=== PATIENT | female | born 1995 | race Caucasian/White ===

== ENCOUNTER 2021-11-19 10:05 | Outpatient (RCR) | payer OTHER, SELFPAY ==
[2021-11-19] MEDS: RHO(D) IMMUNE GLOBULIN 300 MCG/2 ML SYRINGE IM (17:30)
== END 2022-02-17 23:59 | disposition home or self-care (01) ==
LOC: ANHLAB 10:05
PROVIDERS: PCP Family Medicine Sports Medicine; Visit Provider Student in an Organized Health Care Education/Training Program
DX: Z29.13 Encounter for prophylactic Rho(D) immune globulin (principal); O36.0190 Maternal care for anti-D [Rh] antibodies, unspecified trimester, not applicable or unspecified; Z3A.00 Weeks of gestation of pregnancy not specified
CPT/HCPCS: 36415; 85461; 90384; 96372; J2790

== ENCOUNTER 2022-02-05 15:15 | Outpatient (RCR) | payer OTHER, SELFPAY ==
[2021-12-30 11:43] VITALS: BP 134/85
--- NOTE | ~2022-02-05 | US_ITS ---
EXAMINATION: US OB BPP wo non-stress DATE: 02/05/2022 16:33 CDT INDICATION: Decreased movement TECHNIQUE: Real-time transabdominal obstetric ultrasound. FINDINGS: No prior studies for comparison. There is a single living fetus in vertex presentation. The placenta is fundal without placenta previ a. cardiac activity and movement is noted with a heart rate of 136 beats per minute. Biophysical profile: breathin of 2 movement: 0 of 2 tone: 0 of 2 Amniotic flud pocket: 2 of 2 Total score: 4 of 8 IMPRESSION: 1. Single living intrauterine in vertex presentation. 2: Total biophysical profile score of 4/8. Reviewed, dictated and finalized at location B.
== END 2022-02-27 13:25 | disposition home or self-care (01) ==
LOC: ANHOBOP 15:15
PROVIDERS: PCP Family Medicine Sports Medicine; Visit Provider Obstetrics & Gynecology
DX: O36.8130 Decreased fetal movements, third trimester, not applicable or unspecified (principal); Z3A.34 34 weeks gestation of pregnancy
CPT/HCPCS: 59025; 76819

== ENCOUNTER 2022-02-05 15:15 | Inpatient (IN) | payer OTHER, SELFPAY ==
[2022-02-05] VITALS (50 sets, daily range): BP systolic 95–154; BP diastolic 51–110; PULSE 83–288; RESP 16; TEMP 36.6–36.8; O2SAT 96–100; BMI 36.3
--- NOTE | 2022-02-05 15:27 | PC.NURSE ---
Late decel noted. Pt turned to left side in recliner.
--- NOTE | 2022-02-05 15:30 | PC.NURSE ---
Dr. Rafa Kessler returned page and informed of pt's arrival with c/o only feeling baby move twice since this morning, variability is minimal to absent and a late decel was noted. Order received for BPP.
--- NOTE | 2022-02-05 15:43 | PC.NURSE ---
U/S here at bedside. monitor removed.
--- NOTE | 2022-02-05 16:20 | PC.NURSE ---
Entered room twice during BPP to visualize cardiac activity on the U/S. BPP 02/26 ( 2 for breathing and 2 for fluid). monitor reapplied and Dr. Rafa power.
--- NOTE | 2022-02-05 16:23 | PC.NURSE ---
Dr. Rafa Kessler returned page and informed BPP 0 for movement and tone. FHT's still with minimal variability. Order received to prepare pt for section.
--- NOTE | 2022-02-05 16:40 | PC.NURSE ---
Dr Fritz at bedside to see patient.
--- NOTE | 2022-02-05 16:41 | PM.IMHP ---
H&P: HPI History of Present Illness Date/Time: 02/05/22 16:41 26-year-old 1 para 0 was last menstrual period was 05/04/2021, EDC is 02/08/2022, confirmed by 10 week ultrasound presents at 39 weeks gestation with decreased movement. She has a flat tracing on admission. Biophysical profile was only 4/8. Her cervix is 1cm and bus she will undergo immediate section. Risks and benefits reviewed. She is positive for group B strep she states her Carmen has been uncomplicated prior Chief Complaint: decreased movement Review of Systems Review of Systems: All systems reviewed & are unremarkable except as noted in HPI and below PMFSH Family History Family History Grandparent Lung cancer Grandparent Breast cancer in female Social History Social History Substance use: never Spiritual care concerns: No Meds Home Medications and Allergies Allergies Allergy/AdvReac Type Severity Reaction Status Date / Time cisapride Allergy Severe Palpitation Verified 01/18/22 14:26 s erythromycin base Allergy Unknown Unknown Verified 01/18/22 14:26 Exam Const: General: no acute distress Eyes: General: appearance normal, both eyes and all related structures Neck: Neck: supple and no JVD Thyroid: thyroid normal Resp: Effort & Inspection: normal respiratory effort Auscultation: clear to auscultation bilaterally Cardio: Rate: regular rate Rhythm: regular rhythm GI: Inspection: non-distended GI Palp: Yes Soft to palpation, No Tenderness to palpation present (GI) and No Guarding due to palpation present (GI) Auscultation: normal bowel sounds : External Female Exam: normal external appearance Speculum Exam - Vagina: normal appearance of the vagina Speculum Exam - Cervix: normal appearance of the cervix Bimanual exam- vagina & uterus: enlarged and soft Skin: General skin exam: no rashes or lesions noted Extrem: General: normal to inspection and no edema Psych: Mental Status: mental status grossly normal Affect: normal affect Assessment and Plan Additional Plan impression: 39 week with nonreassuring testing and decreased movement Plan: Immediate section. Risks and benefits reviewed
--- NOTE | 2022-02-05 16:48 | WPDHPUPDATE1 ---
History and Physical Update Update Date/Time: 02/05/22 16:48 History and Physical has been reviewed, including an updated exam of the patient. There are NO changes in the patient's condition. Risks, benefits, and alternatives have been discussed and questions answered. Patient agrees to proceed with procedure.
--- NOTE | 2022-02-05 16:50 | LDADM ---
This patient, Emma Robles, was admitted to Labor/Delivery/Recovery 118 on 02/05/22 at 15:15. Plans for labor, pain management and were discussed with patient. Patient/family oriented to hospital policies and general routines including ID bracelet, bed and alarms, visiting hours, pain management, procedures, bathroom and other care routines, personal items, smoking policy, room service/diet and guest tray routines, infant security routines, and visiting hours. Patient/Family are encouraged to report perceived risks to care and to ask questions if they do not understand what they are told or what they should do. See OBIX for further documentation.
[2022-02-05 16:52] LABS: Basophils Percent Auto 0.3 % (0.2-1.2); Eosinophils Absolute Auto 0.1 K/mm3 (0-0.3); Eosinophils Percent Auto 0.7 % (0-4.4); Hematocrit 38.6 % (37.0-47.0); Hemoglobin 12.8 g/dL (12.0-15.0); Immature Granulocyte Absolute 0.05 K/mm3 (0.00-0.031); Immature Granulocyte Percent A 0.7 % (0-0.5); Lymphocytes Absolute Auto 1.52 K/mm3 (0.9-3.2); Lymphocytes Percent Auto 22.2 % (18.3-44.2); Mean Corpuscular HGB Conc 33.2 g/dl (32-36); Mean Corpuscular Hemoglobin 29.4 pg (26-34); Mean Corpuscular Volume 88.7 fl (80-100); Mean Platelet Volume 10.6 fl (7.4-10.4); Monocytes Absolute Auto 0.5 K/mm3 (0.1-0.6); Monocytes Percent Auto 7.7 % (2.6-8.5); Neutrophils Absolute Auto 4.7 K/mm3 (1.3-6.7); Neutrophils Percent Auto 68.4 % (45.5-73.1); Platelet Count Result 173 k/mm3 (150-375); Red Blood Count 4.35 M/mm3 (4.2-5.4); Red Cell Distribution Width 13.8 % (11.5-14.5); White Blood Count 6.9 K/mm3 (4.5-10.0)
[2022-02-05] MEDS: LACTATED RINGERS 1,000 ML 125 ML IV CONT (16:59)
[2022-02-05 17:47] LABS: HIV 1/2 Ab P24 Ag Result Negative (Negative)
--- NOTE | 2022-02-05 17:55 | W.PM.PROC2 ---
Procedure Note - Detailed Date of Procedure 02/05/22 Pre-op Diagnosis DFM Post-op Diagnosis Same Procedure Performed Primary low-transverse section Surgeon Manolo Stuart MD Anesthesia Spinal Indications / 26-year-old who was admitted at 39 weeks with decreased movement. testing showed nonreassuring side that she was offered immediate section Findings female infant 5lb 11oz with Apgars of 4 and 8 at 1 and 5minutes respectively Description of Procedure the patient is prepped draped in normal sterile fashion placed in the supine position. Under excellent spinal anesthetic the abdomen was entered in Pfannenstiel fashion progressive layers to the fascia. Fascia was incised in upward outward fashion bilaterally. Underlying muscles sharply dissected parietal peritoneum 0 by Eduarda clamps. This was entered by sharp dissection superiorly and inferiorly dome of the bladder. Bladder blade was placed the bladder flap formed. Bladder blade returned a low-transverse incision made with a head delivered in the GINO position. Anterior posterior shoulder delivered spontaneously cord clamped tube was cut and passed off the table given Apgars of for 1 8 [id number] cord blood was drawn the placenta delivered intact manually. Uterus delivered on the abdomen which under S tox. After assuring no membranes or debris remained in the uterus, the uterus was closed with continuous running 0 Vicryl from lateral edge to lateral edge followed by a 2nd running imbricating layer from lateral edge lateral prepped hemostasis was assured. Uterus ovaries and tubes all appeared within normal limits. Uterus returned to the abdomen and the hysterotomy incision inspected 1 last time and noted to be hemostatic. Laps removed and accounted for the fascia was then closed with continuous running 0 Vicryl from lateral edge to midline bilaterally. Irrigation subcutaneous layer the skin was closed 4-0 Monocryl and glue. Blood loss was 450cc. All sponge, needle, instrument counts were correct. There were no immediate complications noted Estimated Blood Loss 450 Drains No Packing No Pathology Yes Complications No immediate complications Condition Stable Disposition PACU
--- NOTE | 2022-02-05 18:39 | WPDANESEPP ---
Anes - Eval Pre Procedure Procedure: Operation Date: 02/05/22 17:00 Proposed Procedures p Section - Manolo Stuart MD Date/Time: 02/05/22 18:39 Pre Op Diagnosis: DFM Patient Data Age: 26 Gender: F Height: 1.75 m Weight: 111.5 kg Last Vital Signs Temp 36.6 C 02/05/22 17:59 Pulse 97 02/05/22 17:59 Allergies Allergy/AdvReac Type Severity Reaction Status Date / Time cisapride Allergy Severe Palpitation Verified 01/18/22 14:26 s erythromycin base Allergy Unknown Unknown Verified 01/18/22 14:26 Home Medications Medication Instructions Recorded Confirmed Type [id number] fum-folic ac-om3 1 pkg PO DAILY 02/05/22 02/05/22 History [Daily ] Laboratory Tests 02/05/22 02/05/22 02/05/22 16:43 16:43 16:43 WBC 6.9 K/mm3 K/mm3 (4.5-10.0) RBC 4.35 M/mm3 M/mm3 (4.2-5.4) Hgb 12.8 g/dL g/dL (12.0-15.0) Hct 38.6 % % (37.0-47.0) MCV 88.7 fl fl (80-100) MCH 29.4 pg pg (26-34) MCHC 33.2 g/dl g/dl (32-36) RDW 13.8 % % (11.5-14.5) Plt Count 173 k/mm3 k/mm3 (150-375) MPV 10.6 fl H fl (7.4-10.4) Immature Gran % (Auto) 0.7 % H % (0-0.5) Neut % (Auto) 68.4 % % (45.5-73.1) Lymph % (Auto) 22.2 % % (18.3-44.2) [place] % (Auto) 7.7 % % (2.6-8.5) Eos % (Auto) 0.7 % % (0-4.4) Baso % (Auto) 0.3 % % (0.2-1.2) Lymph # (Auto) 1.52 K/mm3 K/mm3 (0.9-3.2) [place] # (Auto) 0.5 K/mm3 K/mm3 (0.1-0.6) Eos # (Auto) 0.1 K/mm3 K/mm3 (0-0.3) Baso # (Auto) 0.0 K/mm3 K/mm3 (0.0-0.1) Abs Immat Gran (auto) 0.05 K/mm3 H K/mm3 (0.00-0.031) Absolute Neuts (auto) 4.7 K/mm3 K/mm3 (1.3-6.7) Absolute Nucleated RBC 0.0 K/mm3 K/mm3 (0.0-0.012) Nucleated RBC % 0.0 % % (0.0-0.2) RPR Pending HIV 1&2 Ab/P24 Ag 4thGn Blood Type A Negative Antibody Screen Positive Antibody Identification Pending Antigen Identification Pending LATOYA, IgG Interpret Pending LATOYA, Poly Interpret Pending LATOYA, Complement Interp Pending 02/05/22 16:43 WBC RBC Hgb Hct MCV MCH MCHC RDW Plt Count MPV Immature Gran % (Auto) Neut % (Auto) Lymph % (Auto) [place] % (Auto) Eos % (Auto) Baso % (Auto) Lymph # (Auto) [place] # (Auto) Eos # (Auto) Baso # (Auto) Abs Immat Gran (auto) Absolute Neuts (auto) Absolute Nucleated RBC Nucleated RBC % RPR HIV 1&2 Ab/P24 Ag 4thGn Negative (Negative) Blood Type Antibody Screen Antibody Identification Antigen Identification LATOYA, IgG Interpret LATOYA, Poly Interpret LATOYA, Complement Interp Patient hx anesthesia problems: none Family hx anesthesia problems: none Results Review: All pre-operative results and documents have been reviewed as part of the pre-operative evaluation. [facility] Past Medical History Medical History (Updated 02/05/22 @ 18:40 by Leonarda Mcrae CRNA) IUP (intrauterine ), incidental Obesity (BMI 30-39.9) Family History Family History Grandparent Lung cancer Grandparent Breast cancer in female Social History Social History Smoking status: Never smoker Second hand tobacco smoke exposure: No Substance use: never Spiritual care concerns: No Exam Day of Procedure 02/05/22 18:39
[2022-02-05] MEDS: HYDROmorphone HCL INJ (*CRX) 1 MG/ML SYR 0.5 MG IV PUSH ×2 (19:38→20:28)
[2022-02-05] MEDS: OXYTOCIN 30 UNITS/NS 500 ML 30 UNITS/500 ML BAG 125 UNITS IV CONT (19:39)
[2022-02-05] MEDS: ONDANSETRON INJ 4 MG/2 ML VIAL IV PUSH (20:32)
--- NOTE | 2022-02-05 23:19 | OBPPTRN ---
Patient transferred to post room # 290 via (stretcher ). Support person present. Oriented to unit, room, information board, rooming in, admission packet and security measures. Patient verbalizes understanding.
[2022-02-06] VITALS: BP 135/84; PULSE 108; RESP 16; TEMP 36.6; O2SAT 100
[2022-02-06] MEDS: DEXTROSE 5%/0.45% SOD CHL 1,000 ML 125 ML IV CONT (00:20)
[2022-02-06] MEDS: IBUPROFEN 600 MG TABLET PO ×4 (01:48→21:28)
[2022-02-06] MEDS: HYDROcodone/acetaminophen (*CRX) 5-325 MG TABLET 1 TAB PO ×5 (01:48→16:34)
[2022-02-06 04:30] VITALS: BP 122/79; PULSE 106; RESP 18; TEMP 36.7; O2SAT 97
[2022-02-06] MEDS: ONDANSETRON INJ 4 MG/2 ML VIAL IV PUSH (05:03)
[2022-02-06 05:07] LABS: Basophils Percent Auto 0.2 % (0.2-1.2); Eosinophils Percent Auto 0.3 % (0-4.4); Hematocrit 32.1 % (37.0-47.0); Hemoglobin 10.6 g/dL (12.0-15.0); Immature Granulocyte Absolute 0.06 K/mm3 (0.00-0.031); Immature Granulocyte Percent A 0.6 % (0-0.5); Lymphocytes Absolute Auto 1.45 K/mm3 (0.9-3.2); Lymphocytes Percent Auto 15.6 % (18.3-44.2); Mean Corpuscular Hemoglobin 29.6 pg (26-34); Mean Corpuscular Volume 89.7 fl (80-100); Mean Platelet Volume 10.6 fl (7.4-10.4); Monocytes Absolute Auto 0.5 K/mm3 (0.1-0.6); Monocytes Percent Auto 5.1 % (2.6-8.5); Neutrophils Absolute Auto 7.2 K/mm3 (1.3-6.7); Neutrophils Percent Auto 78.2 % (45.5-73.1); Platelet Count Result 145 k/mm3 (150-375); Red Blood Count 3.58 M/mm3 (4.2-5.4); White Blood Count 9.3 K/mm3 (4.5-10.0)
[2022-02-06 08:00] VITALS: BP 105/77; PULSE 98; RESP 18; TEMP 36.8; O2SAT 99
--- NOTE | 2022-02-06 08:05 | PM.OBPNVD ---
OB - PN: Subj Subjective Date/time seen: 02/06/22 08:05 Patient comments: no complaints and pain well controlled baby status: doing well OB - PN: Obj Data Labs CBC & Chem 7: 02/06/22 04:07 Labs: Laboratory Results - last 24 hr 02/05/22 02/05/22 02/05/22 16:43 16:43 16:43 WBC 6.9 RBC 4.35 Hgb 12.8 Hct 38.6 MCV 88.7 MCH 29.4 MCHC 33.2 RDW 13.8 Plt Count 173 MPV 10.6 H Immature Gran % (Auto) 0.7 H Neut % (Auto) 68.4 Lymph % (Auto) 22.2 [place] % (Auto) 7.7 Eos % (Auto) 0.7 Baso % (Auto) 0.3 Lymph # (Auto) 1.52 [place] # (Auto) 0.5 Eos # (Auto) 0.1 Baso # (Auto) 0.0 Abs Immat Gran (auto) 0.05 H Absolute Neuts (auto) 4.7 Absolute Nucleated RBC 0.0 Nucleated RBC % 0.0 HIV 1&2 Ab/P24 Ag 4thGn Negative Blood Type A Negative Antibody Screen Positive Antibody Identification Passive Due to RH Imm Glob Antigen Identification Not Reportable LATOYA, IgG Interpret Not Performed LATOYA, Poly Interpret Negative LATOYA, Complement Interp Not Performed 02/06/22 04:07 WBC 9.3 RBC 3.58 L Hgb 10.6 L Hct 32.1 L MCV 89.7 MCH 29.6 MCHC 33.0 RDW 14.0 Plt Count 145 L MPV 10.6 H Immature Gran % (Auto) 0.6 H Neut % (Auto) 78.2 H Lymph % (Auto) 15.6 L [place] % (Auto) 5.1 Eos % (Auto) 0.3 Baso % (Auto) 0.2 Lymph # (Auto) 1.45 [place] # (Auto) 0.5 Eos # (Auto) 0.0 Baso # (Auto) 0.0 Abs Immat Gran (auto) 0.06 H Absolute Neuts (auto) 7.2 H Absolute Nucleated RBC 0.0 Nucleated RBC % 0.0 HIV 1&2 Ab/P24 Ag 4thGn Blood Type Antibody Screen Antibody Identification Antigen Identification LATOYA, IgG Interpret LATOYA, Poly Interpret LATOYA, Complement Interp OB - PN A/P Plan day: 1 Plan: routine care Time Spent With Patient Time: Total time spent is greater than 50% in coordination of care (as documented) at patient's floor/unit and/or counseling patient: Time with patient: less than 15 minutes Review of Systems Review of Systems: All systems reviewed & are unremarkable except as noted in HPI and below Exam Const: General: no acute distress Eyes: General: appearance normal, both eyes and all related structures Neck: Neck: supple and no JVD Thyroid: thyroid normal Resp: Effort & Inspection: normal respiratory effort Auscultation: clear to auscultation bilaterally Cardio: Rate: regular rate Rhythm: regular rhythm GI: Inspection: normal to inspection, non-distended and incision ( clean dry and intact) GI Palp: Yes Soft to palpation, No Tenderness to palpation present (GI) and No Guarding due to palpation present (GI) Auscultation: normal bowel sounds Skin: General skin exam: no rashes or lesions noted Extrem: General: normal to inspection and no edema Psych: Mental Status: mental status grossly normal Affect: normal affect
[2022-02-06] MEDS: DOCUSATE SODIUM 100 MG CAPSULE PO ×2 (08:42→16:34)
[2022-02-06] MEDS: SIMETHICONE 80 MG TAB.CHEW PO ×3 (08:43→21:28)
[2022-02-06] MEDS: MULTIVIT/MIN/PREN/FOL AC/IRON TABLET 1 TAB PO (08:43)
[2022-02-06 12:00] VITALS: BP 102/52; PULSE 86; RESP 18; TEMP 36.8
--- NOTE | 2022-02-06 12:44 | WPDANLDPN2 ---
Anes-Prog Note L&D Date/Time: 02/06/22 12:44 Comfortable throughout: section Neuraxial method: spinal Epidural/Spinal procedure site: clean & non-tender Neuro status: Neuro function grossly intact. Cardiovascular status: normal Respiratory status: normal Airway patency: baseline Mental status: baseline Post-Op hydration status: normal Vital Signs: Last Vital Signs Temp 36.8 C 02/06/22 08:00 Pulse 98 02/06/22 08:00 Resp 18 02/06/22 08:00 BP 105/77 02/06/22 08:00 Pulse Ox 99 02/06/22 08:00 Pain score (VAS): 11/30 I/O: Intake & Output 02/05/22 02/06/22 02/06/22 23:59 07:59 15:59 Intake Total 1500 Output Total 044 025 5245 Balance -450 -600 -500 Post-procedural complaints: none Patient feedback: Patient satisfied with anesthetic care.
--- NOTE | 2022-02-06 12:45 | WPDANLDNPN2 ---
Anes-Prog Note L&D-Neuraxial Date/Time: 02/06/22 12:45 Neuraxial medications: intrathecal PF morphine Opiod-related complaints: none Patient feedback: Patient satisfied with post-operative pain management.
[2022-02-06 16:00] VITALS: BP 102/50; BP 102/52; PULSE 110; PULSE 86; RESP 18; TEMP 36.6; TEMP 36.8; O2SAT 99
[2022-02-06] MEDS: LANOLIN (LANSINOH) 7.5 GM CREAM 1 APPLIC TOPICAL (16:34)
--- NOTE | 2022-02-06 18:00 | PC.NURSE ---
Tabatha Francisco drawn per [facility] order.
--- NOTE | 2022-02-06 18:33 | PC.NURSE ---
Jackelyn Mathew from lab phoned and requesting reason for Kleinhauer Beke. Instructed that physician from [facility] phoned today requesting test to be drawn on mother to rule out any hemolytic diseases. Phone number given to Jackelyn Mathew and instructed to call [facility] NICU with any other questions.
[2022-02-06 18:47] VITALS: BP 125/75; PULSE 110; RESP 18; TEMP 36.4; O2SAT 99
[2022-02-06] MEDS: HYDROcodone/acetaminophen (*CRX) 10-325 MG TABLET 1 TAB PO (21:32)
--- NOTE | 2022-02-06 23:03 | PC.NURSE ---
02/06/2022 at 2130 Patient viewed the discharge video Mother & Baby Care, The First Two Weeks . Patient was given the opportunity and encouraged to ask questions. Patient verbalized understanding of information shared and has been given the mother/baby guide for home reference.
[2022-02-07] MEDS: HYDROcodone/acetaminophen (*CRX) 10-325 MG TABLET 1 TAB PO ×2 (05:54→09:58)
[2022-02-07] MEDS: IBUPROFEN 600 MG TABLET PO ×2 (05:54→10:03)
[2022-02-07] MEDS: SIMETHICONE 80 MG TAB.CHEW PO (05:55)
--- NOTE | 2022-02-07 07:15 | PM.OBPNVD ---
OB - PN: Subj Subjective Date/time seen: 02/07/22 07:15 Patient comments: no complaints and pain well controlled OB - PN: Obj Data Labs CBC & Chem 7: 02/06/22 04:07 Labs: Laboratory Results - last 24 hr 02/06/22 17:52 KB Hemoglobin Negative OB - PN A/P Plan day: 2 Plan: routine care, discharge home and follow up 6 weeks (2) Time Spent With Patient Time: Total time spent is greater than 50% in coordination of care (as documented) at patient's floor/unit and/or counseling patient: Time with patient: less than 15 minutes Review of Systems Review of Systems: All systems reviewed & are unremarkable except as noted in HPI and below Exam Const: General: no acute distress Eyes: General: appearance normal, both eyes and all related structures Neck: Neck: supple and no JVD Thyroid: thyroid normal Resp: Effort & Inspection: normal respiratory effort Auscultation: clear to auscultation bilaterally Cardio: Rate: regular rate Rhythm: regular rhythm GI: Inspection: non-distended GI Palp: Yes Soft to palpation, No Tenderness to palpation present (GI) and No Guarding due to palpation present (GI) Auscultation: normal bowel sounds : General: Yes bladder normal to palpation External Female Exam: normal external appearance Speculum Exam - Vagina: normal vaginal discharge and No vaginal bleeding Speculum Exam - Cervix: nontender Bimanual exam- vagina & uterus: bladder normal to palpation and No Cervical tenderness present OB/external & speculum: No vaginal bleeding Skin: General skin exam: no rashes or lesions noted Extrem: General: normal to inspection and no edema Psych: Mental Status: mental status grossly normal Affect: normal affect
--- NOTE | 2022-02-07 07:15 | PM.DS ---
DS: Admitting Diagnosis Discharge Date 02/07/2022 Admitting Diagnosis term with nonreassuring testing DS: Summary Hospital Course Hospital Course: patient was admitted at term with decreased movement. She had a relatively flat tracing and underwent biophysical profile which was only a 4/8. She underwent immediate low-transverse section. Baby received Apgars of 4 and 8. Please see the operative report for full details. Baby was transferred but the patient was doing well. She remained afebrile. She was up, voiding without difficulty, ambulating generally without complaints. Time Spent with Patient Time attestation: Total time spent providing and/or coordinating discharge services: Exam Const: General: no acute distress Eyes: General: appearance normal, both eyes and all related structures Neck: Neck: supple and no JVD Thyroid: thyroid normal Resp: Effort & Inspection: normal respiratory effort Auscultation: clear to auscultation bilaterally Cardio: Rate: regular rate Rhythm: regular rhythm GI: Inspection: non-distended GI Palp: Yes Soft to palpation, No Tenderness to palpation present (GI) and No Guarding due to palpation present (GI) Auscultation: normal bowel sounds : General: Yes bladder normal to palpation External Female Exam: normal external appearance Speculum Exam - Vagina: normal vaginal discharge and No vaginal bleeding Speculum Exam - Cervix: nontender Bimanual exam- vagina & uterus: bladder normal to palpation and No Cervical tenderness present OB/external & speculum: No vaginal bleeding Skin: General skin exam: no rashes or lesions noted Extrem: General: normal to inspection and no edema Psych: Mental Status: mental status grossly normal Affect: normal affect DS: Data Data Completed and Pending Pending studies at discharge: Pending at discharge 02/05/22 18:27 Surgical [PTH] Routine Labs on day of discharge: Labs from last 24 hours 02/06/22 17:52 KB Hemoglobin Negative Discharge Plan Discharge Attending physician on discharge: Manolo Stuart Discharging Clinician: Manolo Stuart Patient Disposition: Home, Self-Care Activity: may shower, no straining and pelvic rest Diet: heart healthy Wound Care Instructions: follow printed instructions Patient Instructions: Antibiotic Form Stand Alone Forms: General Discharge Information Follow-up/Referrals: Anatoliy Doss MD [Physician] - Discharge Medications: Continued Daily [id number] mg-mcg-mg Combo Pack 1 pkg PO DAILY RF: 0 Date of admission: 02/05/22 15:15 Primary Care Provider: Malinda,Deejay Rasmussen Admitting Provider: Anatoliy Doss Attending physician on admission: Anatoliy Doss Condition: Stable
[2022-02-07 08:00] VITALS: BP 125/75; PULSE 110; RESP 18; TEMP 36.4; O2SAT 99
[2022-02-07] MEDS: MULTIVIT/MIN/PREN/FOL AC/IRON TABLET 1 TAB PO (09:59)
[2022-02-07] MEDS: DOCUSATE SODIUM 100 MG CAPSULE PO (09:59)
--- NOTE | 2022-02-07 10:33 | PC.NURSE ---
Discharge instructions given to pt. including follow up visit date and time. Pt. verbalized understanding. No questions or concerns voiced. at side.
--- NOTE | 2022-02-07 11:00 | PC.NURSE ---
Order received by Dr. Rafa Kessler stating that pt. does not need to return for follow up visit.
[2022-02-08 17:57] LABS: Rapid Plasma Reagin Non-Reactive (NonReactive)
== END 2022-02-07 11:47 | disposition home or self-care (01) | DRG 788 ==
LOC: ANHLDR 17:16 → ANHOB2 02-07 07:16 → ANHLDR 02-09 14:06 → ANHOB2 02-09 14:06
PROVIDERS: Admitting Provider Obstetrics & Gynecology; PCP Family Medicine Sports Medicine; Visit Provider Obstetrics & Gynecology
PROC: 10D00Z1 Extraction of Products of Conception, Low, Open Approach (ICD-10-PCS; CPT 59514; principal; 2022-02-05 17:00)
DX: O36.8130 Decreased fetal movements, third trimester, not applicable or unspecified (principal); Z37.0 Single live birth; Z3A.39 39 weeks gestation of pregnancy; O99.824 Streptococcus B carrier state complicating childbirth; O36.8330 Maternal care for abnormalities of the fetal heart rate or rhythm, third trimester, not applicable or unspecified
CPT/HCPCS: 36415; 76819; 85025; 85460; 86592; 86703; 86850; 86880; 86900; 86901; 86902; 88307; A9270; G0432; J1170; J2274; J2405; J2590; J7120

== ENCOUNTER 2023-06-09 08:03 | Outpatient (CLI) | payer OTHER, SELFPAY ==
[2023-06-09 08:54] LABS: Beta HCG Quantitative 39.95 mIU/ML
== END 2023-06-09 08:04 | disposition home or self-care (01) ==
PROVIDERS: PCP Family Medicine Sports Medicine; Visit Provider Obstetrics & Gynecology
DX: O20.0 Threatened abortion (principal)
CPT/HCPCS: 36415; 84702

== ENCOUNTER 2023-06-11 07:35 | Outpatient (CLI) | payer OTHER, SELFPAY | END 2023-06-11 07:36 | disposition home or self-care (01) | PROVIDERS: PCP Family Medicine Sports Medicine; Visit Provider Obstetrics & Gynecology | DX: O20.0 Threatened abortion (principal); Z3A.00 Weeks of gestation of pregnancy not specified | CPT/HCPCS: 36415; 84702 ==

== ENCOUNTER 2023-08-18 09:32 | Outpatient (RCR) | payer OTHER, SELFPAY ==
[2023-08-19] MEDS: RHO(D) IMMUNE GLOBULIN 300 MCG/2 ML SYRINGE IM (08:42)
== END 2023-11-16 23:59 | disposition home or self-care (01) ==
LOC: ANHLAB 09:32
PROVIDERS: PCP Family Medicine Sports Medicine; Visit Provider Obstetrics & Gynecology
DX: Z29.13 Encounter for prophylactic Rho(D) immune globulin (principal); O36.0190 Maternal care for anti-D [Rh] antibodies, unspecified trimester, not applicable or unspecified; O20.0 Threatened abortion; Z3A.00 Weeks of gestation of pregnancy not specified
CPT/HCPCS: 36415; 85461; 86850; 86900; 86901; 90384; 96372; J2790

== ENCOUNTER 2024-01-03 15:35 | Outpatient (RCR) | payer OTHER, SELFPAY ==
[2024-01-04] MEDS: RHO(D) IMMUNE GLOBULIN 300 MCG/2 ML SYRINGE IM (15:44)
== END 2024-04-02 23:59 | disposition home or self-care (01) ==
LOC: ANHLAB 15:35
PROVIDERS: PCP Family Medicine Sports Medicine; Visit Provider Obstetrics & Gynecology
DX: Z29.13 Encounter for prophylactic Rho(D) immune globulin (principal); O36.0190 Maternal care for anti-D [Rh] antibodies, unspecified trimester, not applicable or unspecified; Z3A.00 Weeks of gestation of pregnancy not specified
CPT/HCPCS: 36415; 85461; 86850; 86870; 86880; 86900; 86901; 86902; 86971; 90384; 96372; J2790

== ENCOUNTER 2024-03-11 15:59 | Outpatient (RCR) | payer OTHER, SELFPAY ==
[2024-02-06 14:30] VITALS: BP 107/65; PULSE 90
[2024-02-13 08:29] VITALS: BP 119/70; PULSE 89
[2024-02-21 17:04] VITALS: BP 125/70; PULSE 99
[2024-02-27 16:22] VITALS: BP 120/71; PULSE 94
[2024-03-01 17:27] VITALS: BP 124/84; PULSE 98
[2024-03-05 16:14] VITALS: BP 128/73; PULSE 103
--- NOTE | ~2024-03-11 | US_ITS ---
US OB limited DATE: 02/21/2024 16:35 INDICATION: Amniotic fluid index TECHNIQUE: Real-time imaging and Doppler analysis COMPARISON: None FINDINGS: Live santana intrauterine gestation, fetus in longitudinal lie, vertex presentation, with heart rate of 148 bpm. Anterior placenta. Amniotic fluid index measures 13.8 cm, within lower normal range. (5th percentile ENIO: 7.9 cm; 95th p ercentile ENIO: 24.9 cm). IMPRESSION: Amniotic fluid index measures 7.9 cm Reviewed, dictated and finalized at Location A. Reviewed, dictated and finalized at location B.
[2024-03-11 16:36] VITALS: BP 131/79; PULSE 93
== END 2024-05-06 23:59 | disposition home or self-care (01) ==
LOC: ANHOBOP 15:59
PROVIDERS: PCP Family Medicine Sports Medicine; Visit Provider Obstetrics & Gynecology
DX: O36.8130 Decreased fetal movements, third trimester, not applicable or unspecified (principal); Z3A.33 33 weeks gestation of pregnancy; O36.63X0 Maternal care for excessive fetal growth, third trimester, not applicable or unspecified; Z3A.34 34 weeks gestation of pregnancy; Z3A.35 35 weeks gestation of pregnancy; Z3A.36 36 weeks gestation of pregnancy; Z3A.37 37 weeks gestation of pregnancy; Z3A.38 38 weeks gestation of pregnancy
CPT/HCPCS: 59025; 76815

== ENCOUNTER 2024-03-14 07:11 | Inpatient (IN) | payer OTHER, SELFPAY ==
[2024-03-14] VITALS (52 sets, daily range): BP systolic 111–156; BP diastolic 40–113; PULSE 54–125; RESP 17–20; TEMP 36.2–36.9; O2SAT 68–100; BMI 36.1
[2024-03-14] MEDS: ACETAMINOPHEN 500 MG TABLET 1000 MG PO (07:38)
[2024-03-14] MEDS: LACTATED RINGERS 1,000 ML 125 ML IV CONT ×3 (07:45→09:30)
--- NOTE | 2024-03-14 08:03 | LDADM ---
This patient, Emma Robles, was admitted to Labor/Delivery/Recovery 120 on 03/14/24 at 07:11. Plans for labor, pain management and were discussed with patient. Patient/family oriented to hospital policies and general routines including ID bracelet, bed and alarms, visiting hours, pain management, procedures, bathroom and other care routines, personal items, smoking policy, room service/diet and guest tray routines, infant security routines, and visiting hours. Patient/Family are encouraged to report perceived risks to care and to ask questions if they do not understand what they are told or what they should do. See OBIX for further documentation.
[2024-03-14 08:08] LABS: Basophils Absolute Auto 0.1 K/mm3 (0.0-0.1); Basophils Percent Auto 0.7 % (0.2-1.2); Eosinophils Percent Auto 0.6 % (0-4.4); Immature Granulocyte Absolute 0.09 K/mm3 (0.00-0.031); Immature Granulocyte Percent A 1.3 % (0-0.5); Lymphocytes Absolute Auto 2.03 K/mm3 (0.9-3.2); Lymphocytes Percent Auto 29.1 % (18.3-44.2); Mean Corpuscular HGB Conc 32.4 g/dl (32-36); Mean Corpuscular Hemoglobin 28.2 pg (26-34); Mean Corpuscular Volume 86.9 fl (80-100); Mean Platelet Volume 11.2 fl (7.4-10.4); Monocytes Absolute Auto 0.5 K/mm3 (0.1-0.6); Monocytes Percent Auto 6.7 % (2.6-8.5); Neutrophils Absolute Auto 4.3 K/mm3 (1.3-6.7); Neutrophils Percent Auto 61.6 % (45.5-73.1); Platelet Count Result 147 k/mm3 (150-375); Red Blood Count 4.26 M/mm3 (4.2-5.4); Red Cell Distribution Width 14.8 % (11.5-14.5)
--- NOTE | 2024-03-14 08:14 | WPDANESEPPF ---
Anes - Initial Pre Proc Eval Procedure: Operation Date: 03/14/24 08:15 Proposed Procedures p Section - Anatoliy Doss MD Operation Date: 03/21/24 12:00 Proposed Procedures p Repeat Section with Tubal Ligation - Anatoliy Doss MD Date/Time: 03/14/24 08:14 Surgeon: Anatoliy Doss MD Pre Op Diagnosis: srom Patient Data Age: 28 Gender: F Height: 1.75 m Weight: 111 kg Last Vital Signs Pulse 118 H 03/14/24 08:00 BP 134/79 03/14/24 08:00 O2 Del Method Room Air 03/14/24 08:02 Allergies Allergy/AdvReac Type Severity Reaction Status Date / Time cisapride Allergy Severe Palpitation Verified 02/21/24 15:34 s erythromycin base Allergy Unknown Unknown Verified 02/21/24 15:34 Home Medications Medication Instructions Recorded Confirmed Type vits 75-iron 28 mg-folic 1 pkg PO DAILY 02/05/22 03/11/24 History acid 800 mcg-omega3 440 mg oral pack bupropion HCl 150 mg 24 hr tablet, 150 mg PO QAM 03/11/24 03/11/24 History extended release sertraline 100 mg tablet 100 mg PO HS 03/11/24 03/11/24 History Laboratory Tests 03/14/24 07:59 WBC Pending RBC Pending Hgb Pending Hct Pending MCV Pending MCH Pending MCHC Pending RDW Pending Plt Count Pending MPV Pending Immature Gran % (Auto) Pending Neut % (Auto) Pending Lymph % (Auto) Pending [place] % (Auto) Pending Eos % (Auto) Pending Baso % (Auto) Pending Lymph # (Auto) Pending [place] # (Auto) Pending Eos # (Auto) Pending Baso # (Auto) Pending Abs Immat Gran (auto) Pending Absolute Neuts (auto) Pending Absolute Nucleated RBC Pending Nucleated RBC % Pending Patient hx anesthesia problems: none and post op nausea/vomiting (mild nausea after prev C section. ) Family hx anesthesia problems: none Results Review: All pre-operative results and documents have been reviewed as part of the pre-operative evaluation. [facility] Past Medical History Medical History IUP (intrauterine ), incidental Obesity (BMI 30-39.9) Family History Family History Grandparent Lung cancer Grandparent Breast cancer in female Social History Social History Smoking status: Never smoker Second hand tobacco smoke exposure: No Substance use: never Do You Feel Safe in your Home?: Yes Lack of Transportation: No Lack of Food: Never True Current Housing: I Have Housing Concerned About Future Housing: No Difficulty Paying Gas/Electric Bills: No Difficulty Paying for Meds: No Currently Unemployed: No Education: Master's Degree or Higher Difficulty w/ Childcare or Family Care: No Spiritual care concerns: No Anes - Eval Final PreProcedure Day of Procedure 03/14/24 08:14 Patient weight: overweight Heart: regular rate and rhythm Lungs: clear to auscultation Airway: Mallampati scale class II Neurological: alert and oriented Last oral intake: >/= 8 hours ASA classification: II Emergent: no Anesthetic plan: proceed Anesthesia type and monitoring: regional spinal Results Review: All pre-operative results and documents have been reviewed as part of the pre-operative evaluation. Informed Consent: The patient's anesthetic plan and its attendant risks and benefits were discussed with the patient/family/POA. Questions were solicited and answers provided to the satisfaction of the patient/family/POA.
--- NOTE | 2024-03-14 08:24 | PM.IMHP ---
H&P: HPI History of Present Illness Date/Time: 03/14/24 08:24 Chief Complaint: Jeff trinidad Narrative: 28 y/o at 38 4/7 weeks here after a gush of fluid at 0600, clear. Found to have SROM. She has prior , desires repeat. Also desires concurrent bilateral tubal ligation. GBS pos. Review of Systems Review of Systems: All systems reviewed & are unremarkable except as noted in HPI and below PMFSH Past Medical History Medical History (Updated 03/14/24 @ 08:28 by Anatoliy Doss MD) History of anxiety IUP (intrauterine ), incidental Obesity (BMI 30-39.9) Surgical History Surgical History (Updated 03/14/24 @ 08:28 by Anatoliy Doss MD) History of delivery Family History Family History Grandparent Lung cancer Grandparent Breast cancer in female Social History Social History Smoking status: Never smoker Second hand tobacco smoke exposure: No Substance use: never Do You Feel Safe in your Home?: Yes Lack of Transportation: No Lack of Food: Never True Current Housing: I Have Housing Concerned About Future Housing: No Difficulty Paying Gas/Electric Bills: No Difficulty Paying for Meds: No Currently Unemployed: No Education: Master's Degree or Higher Difficulty w/ Childcare or Family Care: No Spiritual care concerns: No Meds Home Medications and Allergies Home Medications Medication Instructions Recorded Confirmed Type vits 75-iron 28 mg-folic 1 pkg PO DAILY 02/05/22 03/11/24 History acid 800 mcg-omega3 440 mg oral pack bupropion HCl 150 mg 24 hr tablet, 150 mg PO QAM 03/11/24 03/11/24 History extended release sertraline 100 mg tablet 100 mg PO HS 03/11/24 03/11/24 History Allergies Allergy/AdvReac Type Severity Reaction Status Date / Time cisapride Allergy Severe Palpitation Verified 02/21/24 15:34 s erythromycin base Allergy Unknown Unknown Verified 02/21/24 15:34 Vital Signs Vital Signs - 24 hr 03/14/24 08:00 03/14/24 08:15 03/14/24 08:02 Pulse Rate 118 H 110 H Blood Pressure 134/79 135/81 Oxygen Delivery Room Air Exam Const: Orientation/consciousness: patient oriented x3 Other: Well-developed, well-nourished female in no acute distress. Neck: Thyroid: thyroid normal Lymphatic: no lymphadenopathy noted (in neck, axilla or inguinal nodes) Resp: Effort & Inspection: normal respiratory effort Auscultation: clear to auscultation bilaterally Cardio: Rate: regular rate Rhythm: regular rhythm Heart sounds: S1 normal heart sound present and S2 normal heart sound present GI: Other: ABD: Soft, nontender, nondistended, gravid. NST reactive. TOCO: rare contractions. No guarding or rebound tenderness. No hepatosplenomegaly. : General: Yes no CVA tenderness Other: Gross ROM per RN. Back/Spine/Pelvis: Back: no CVA tenderness Skin: General skin exam: normal color and no rashes or lesions noted Neuro: General: patient oriented x3 Extrem: Other: Extremities: nontender with no edema Psych: Mental Status: mental status grossly normal Affect: normal affect H&P: Results Labs Labs: Short CBC 03/14/24 Range/Units 07:59 WBC 7.0 (4.5-10.0) K/mm3 Hgb 12.0 (12.0-15.0) g/dL Hct 37.0 (37.0-47.0) % Plt Count 147 L (150-375) k/mm3 Assessment and Plan Assessment and plan (1) Unwanted fertility: Code(s): Z30.09 - Encounter for other general counseling and advice on contraception Status: Acute Assessment and Plan: A: IUP at 38 4/7 weeks with SROM, prior , desired repeat. Also desired sterilization. P: Offered repeat with bilateral tubal ligation. She understands there are temporary methods of contraception available to her. She understands that there are nonsurgical options a
[2024-03-14] MEDS: FAMOTIDINE 20 MG/2 ML VIAL IV PUSH (08:25)
[2024-03-14] MEDS: ONDANSETRON INJ 4 MG/2 ML VIAL IV PUSH (08:25)
--- NOTE | 2024-03-14 08:32 | WPDHPUPDATE1 ---
History and Physical Update Update Date/Time: 03/14/24 08:32 History and Physical has been reviewed, including an updated exam of the patient. There are NO changes in the patient's condition. Risks, benefits, and alternatives have been discussed and questions answered. Patient agrees to proceed with procedure.
[2024-03-14] MEDS: ceFAZolin 2 GM/D5W 50 ML 2 GM/50 ML BAG IVPB (08:35)
--- NOTE | 2024-03-14 09:30 | W.PM.OBCSD ---
OB - Delivery Note Procedure Delivery date: 03/14/24 Pre-op diagnosis: Positive Group B Strep (GBS) and Previous Delivery Post-op Diagnosis: Other (IUP at 38 4/7 weeks; SROM; Prior , desiring repeat; desired sterility) Induction method: None Delivery monitor: External FHT and External Uterine Procedure Performed: Repeat (Repeat low transverse delivery with concurrent bilateral tubal ligation) Secondary branch: low cervical, transverse and Tubal Ligation Surgeon: Anatoliy Doss MD Anesthesia type: Spinal Description of Procedure/Findings: Findings: Normal appearing uterus, tubes and ovaries. Techniques: The patient was taken to the operating room where she was prepared and draped in the usual sterile fashion in dorsal supine position with a leftward tilt. She received cefazolin preoperatively. Spinal anesthesia was found to be adequate. A Pfannenstiel skin incision was made along the previous scar line and was carried through to the underlying layer of the fascia. The fascia was incised in the midline and the incision was extended laterally. The fascia was dissected free of the underlying rectus muscles. The rectus muscles were in the midline. The peritoneum was identified, tented up and entered sharply. The peritoneal incision was extended superiorly and inferiorly with good visualization of the bladder. The bladder blade was placed. The vesicouterine peritoneum was identified, tented up and entered sharply. The incision was extended laterally and the bladder flap was developed. The bladder blade was replaced. The uterus was then incised sharply in a transverse fashion along the lower uterine segment. The incision was extended laterally. The infant's head was delivered atraumatically to the sterile field, followed by the body. The nose and mouth were bulb suctioned. After a delay, the cord was clamped and cut. The was handed off the field. Cord blood was collected. The placenta was removed manually and was passed off the field. The uterus was exteriorized and cleared of all clots and debris. The uterine incision was reapproximated using 0 Monocryl in a running, locked fashion. Excellent hemostasis resulted as did excellent reapproximation of the normal anatomy. The left Fallopian tube was identified by following it out to the fimbriated end. It was grasped in the midportion with a Austin clamp, elevated, and a loop of tube ligated with a free tie of 0 plain gut. The tubal segment was excised and passed off the field. Hemostasis was excellent. The right Fallopian tube was similarly ligated and a segment excised. The uterus was returned the abdomen. The pelvis was irrigated copiously with warmed normal saline. Rigorous hemostasis was assured. The fascial layer was reapproximated using 0 Vicryl in a running fashion. The skin was closed with a running, subcuticular stitch of 4 0 Vicryl. Dermaflex was applied externally. Sponge, lap, needle and instrument counts were correct. The patient was taken to the recovery room in stable condition. The went to the nursery in stable condition. I was present and scrubbed the entire procedure. Specimen: Yes (cord blood, bilateral tubal segments) Estimated Blood Loss: 230 Drains: Yes (magaña) Packing: No Pathology: Yes (Cord blood, segments of bilateral Fallopian tubes) Complications: None Condition: Stable Disposition: PACU Baby Date of : 03/14/24 Time of : 09:03 Weeks of gestation at delivery: 38 Infant gender: Male Weight (pounds): 9 Weight (ounces): 13 presentation: vertex Placenta delivery description: Spontaneous, Manual Removal and Normal Configuration Cord Vessel Description: Nuchal Cord (x1) and Delayed Cord Clamping score one minute: 8 score five minutes: 9
--- NOTE | 2024-03-14 09:35 | PM.OBDSVD ---
DS: Admitting Diagnosis Discharge Date 03/16/24 Admitting Diagnosis IUP at 38 4/7 weeks SROM Prior , desires repeat Desired sterility GBS pos DS: Discharge Diagnosis Discharge Diagnosis (1) delivery delivered: Code(s): O82 - Encounter for delivery without indication Status: Acute OB - DS: Summary OB Procedures : NST OB Procedures Intrapartum: , Tubal ligation and GBS prophylaxis OB Procedures: : None Peripartum Data Procedures: Procedures Operation Date: 03/14/24 08:15 <No data on this case meets the specified criteria> Operation Date: 03/21/24 12:00 <No data on this case meets the specified criteria> Time Spent with Patient Time attestation: Total time spent providing and/or coordinating discharge services: DS: Data Data Completed and Pending Labs on day of discharge: Labs from last 24 hours 03/14/24 07:59 WBC 7.0 RBC 4.26 Hgb 12.0 Hct 37.0 MCV 86.9 MCH 28.2 MCHC 32.4 RDW 14.8 H Plt Count 147 L MPV 11.2 H Immature Gran % (Auto) 1.3 H Neut % (Auto) 61.6 Lymph % (Auto) 29.1 [place] % (Auto) 6.7 Eos % (Auto) 0.6 Baso % (Auto) 0.7 Lymph # (Auto) 2.03 [place] # (Auto) 0.5 Eos # (Auto) 0.0 Baso # (Auto) 0.1 Abs Immat Gran (auto) 0.09 H Absolute Neuts (auto) 4.3 Absolute Nucleated RBC 0.000 Nucleated RBC % 0.0 RPR Pending Blood Type A Negative Antibody Screen Negative Discharge Plan Discharge Attending physician on discharge: Anatoliy Doss Consulting providers: Sekou Nino; Tatiana Oliveira Discharging Clinician: Anatoliy Doss Patient Disposition: Home, Self-Care Activity: may shower, may drive after 2 weeks and pelvic rest Diet: as tolerated Wound Care Instructions: incision open to air Discharge Instructions: Call or return if temperature above 100.4? F, increased abdominal pain, increased vaginal bleeding or any new problems. Education: Mom and Baby Guide Given to: Mother Follow-Up: Call your delivering provider's office for an appointment to be seen in: 4 Weeks Mom and baby should come to the [facility] for the follow-up appointment. Appointment Date/Time: March 17, 2024 at 9:00 am What to expect at your follow-up visit: Physical Assessment Call [phone] if you are unable to keep your appointment time. BREAST CARE: * Wear a snug supportive bra. * For engorgement discomfort: Breast Feeding: * Apply warm moist washcloths * Express milk as needed to relieve engorgement * Wear loose clothing * For sore nipples: * Identify correct latch-on * Apply warm moist washcloths before and after nursing * Air dry nipples after nursing * May apply Lansinoh cream to nipples ABDOMINAL INCISION: * Allow incision to air dry * Do NOT use lotions for powders on your incision * When showering, allow soap and water to run over the incision, but do not wash incision PERINEAL CARE: * Until bleeding stops, use your jed bottle after urinating * Change your pad frequently throughout the day * No tub baths until seen by your physician - You may shower ACTIVITY: * Rest as much as possible. * Do not exercise or lift anything heavier than your baby (such as laundry or other children.) * Avoid stairs or driving as much as possible. * Do not put anything into the vagina. No douching, tampons, or sexual activity until seen by physician. NOTIFY PHYSICIAN IF YOU HAVE ANY QUESTIONS OR IF ANY OF THE FOLLOWING SYMPTOMS OCCUR: * If your incision becomes red, swollen, or more painful than what you have experienced in the hospital. * If your vaginal bleeding becomes foul smelling. * If your vaginal bleeding becomes more heavy than a period or if your bleeding changes from pink to bright red. However, you may pass an occasional walnut-sized clot once or twice for the first week . * If you ex
--- NOTE | 2024-03-14 10:24 | PC.NURSE ---
heart tones obtained in OR after spinal placement. FHT 140 at 0846. Proceeded to prep patient normally.
[2024-03-14] MEDS: OXYTOCIN 30 UNITS/NS 500 ML 30 UNITS/500 ML BAG 125 UNITS IV CONT (11:37)
--- NOTE | 2024-03-14 12:12 | PC.NURSE ---
Patient transferred to post room #280 per stretcher from labor and delivery. Support person present. Oriented to unit, room, information board, rooming in, admission packet and security measures. Patient verbalizes understanding.
[2024-03-14] MEDS: SIMETHICONE 80 MG TAB.CHEW PO ×2 (12:40→17:06)
[2024-03-14] MEDS: LIDOCAINE 5% PATCH 1 PATCH TRANSDERM (12:40)
[2024-03-14] MEDS: ACETAMINOPHEN 325 MG TABLET 650 MG PO ×2 (15:38→23:10)
[2024-03-14] MEDS: KETOROLAC 15 MG/ML VIAL (*BKC) IV PUSH ×2 (15:38→23:10)
[2024-03-14] MEDS: DEXTROSE 5%/0.45% SOD CHL 1,000 ML 125 ML IV CONT (15:38)
[2024-03-14] MEDS: LORATADINE 10 MG TABLET (15:40)
--- NOTE | 2024-03-14 16:02 | PC.NURSE ---
[phone] Patient called for services. Consulted with patient and family to see infants latch to the breast. Mother has effectively latched to the right breast using cradle positioning. 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 Mother shared that infant breastfed on the left breast 5 minutes and now is demonstrating swallowing on the right breast. After 5 minutes, detaches and doesn't maintain another latch for more than a few sucks. Encouraged skin -to-skin and protecting her milk, infants blood sugar with hand expression finger feeding colostrum to her and 8-12 times in a 24 hour period and the rational for education. Parents voiced understanding and have resources available to them for support. [id number] Consulted to practice [id number] and effective . Infant is disorganized and doesn't maintain longer than a few sucks. Mother practiced hand expression and the was spoon fed approximately a 1/2 tsp, then was placed [id number] cuddled with mother with family present.
[2024-03-14] MEDS: DOCUSATE SODIUM 100 MG CAPSULE PO (17:06)
--- NOTE | 2024-03-14 19:50 | PC.NURSE ---
1950- Called to room to discuss plans for feeding . Patient expressed being frustrated with attempts to latch and having difficulty. At this time I assisted patient with for approx 15 minutes in which infant was vigorously rooting with no successful latch. Blood sugar obtained prior to feeding with results of 46mg/dL. Patient expressed interest in supplementing infant with formula. Provided mother with breast pump and formula of choice - Similac- at this time. 2019- Patient pumped for 15 minutes and obtained a small drop within flange. Assisted patient with using gloved finger to feed drop of EBM then assisted patient with bottle feeding infant.
[2024-03-15] MEDS: DEXTROSE 5%/0.45% SOD CHL 1,000 ML 125 ML IV CONT
[2024-03-15] MEDS: HYDROcodone/acetaminophen (*CRX) 5-325 MG TABLET 1 TAB PO (04:00)
[2024-03-15 04:50] VITALS: BP 120/74; PULSE 99; RESP 18; TEMP 36.6; O2SAT 96
[2024-03-15] MEDS: ACETAMINOPHEN 325 MG TABLET 650 MG PO ×3 (05:03→19:21)
[2024-03-15] MEDS: KETOROLAC 15 MG/ML VIAL (*BKC) IV PUSH (05:04)
[2024-03-15 05:33] LABS: Basophils Percent Auto 0.5 % (0.2-1.2); Eosinophils Absolute Auto 0.1 K/mm3 (0-0.3); Eosinophils Percent Auto 0.9 % (0-4.4); Hematocrit 30.2 % (37.0-47.0); Hemoglobin 10.1 g/dL (12.0-15.0); Immature Granulocyte Absolute 0.04 K/mm3 (0.00-0.031); Immature Granulocyte Percent A 0.7 % (0-0.5); Lymphocytes Absolute Auto 1.54 K/mm3 (0.9-3.2); Lymphocytes Percent Auto 26.5 % (18.3-44.2); Mean Corpuscular HGB Conc 33.4 g/dl (32-36); Mean Corpuscular Volume 86.8 fl (80-100); Mean Platelet Volume 10.8 fl (7.4-10.4); Monocytes Absolute Auto 0.3 K/mm3 (0.1-0.6); Monocytes Percent Auto 5.9 % (2.6-8.5); Neutrophils Absolute Auto 3.8 K/mm3 (1.3-6.7); Neutrophils Percent Auto 65.5 % (45.5-73.1); Platelet Count Result 112 k/mm3 (150-375); Red Blood Count 3.48 M/mm3 (4.2-5.4); Red Cell Distribution Width 15.2 % (11.5-14.5); White Blood Count 5.8 K/mm3 (4.5-10.0)
--- NOTE | 2024-03-15 08:06 | WPDANLDNPN2 ---
Anes-Prog Note L&D-Neuraxial Date/Time: 03/15/24 08:06 Patient feedback: Patient satisfied with post-operative pain management.
--- NOTE | 2024-03-15 08:06 | WPDANLDPN2 ---
Anes-Prog Note L&D Date/Time: 03/15/24 08:06 Neuro status: Neuro function grossly intact. Vital Signs: Last Vital Signs Temp 36.6 C 03/15/24 04:50 Pulse 99 03/15/24 04:50 Resp 18 03/15/24 04:50 BP 120/74 03/15/24 04:50 Pulse Ox 96 03/15/24 04:50 O2 Del Method Room Air 03/14/24 11:30 Pain score (VAS): 1 I/O: Intake & Output 03/14/24 03/15/24 03/15/24 23:59 07:59 15:59 Intake Total 900 1960 Output Total 400 2650 Balance 500 -690 Patient feedback: Patient satisfied with anesthetic care.
[2024-03-15] MEDS: LANOLIN (LANSINOH) 7.5 GM CREAM 1 APPLIC TOPICAL (09:09)
[2024-03-15] MEDS: SIMETHICONE 80 MG TAB.CHEW PO ×3 (09:09→16:42)
[2024-03-15] MEDS: MULTIVIT/MIN/PREN/FOL AC/IRON TABLET 1 TAB PO (09:09)
[2024-03-15] MEDS: DOCUSATE SODIUM 100 MG CAPSULE PO ×2 (09:09→16:42)
[2024-03-15 09:25] VITALS: BP 130/85; PULSE 98; RESP 18; TEMP 36.6; O2SAT 100
[2024-03-15] MEDS: IBUPROFEN 600 MG TABLET PO ×2 (11:49→19:21)
--- NOTE | 2024-03-15 12:38 | PM.OBPNVD ---
OB - PN: Subj Subjective Date/time seen: 03/15/24 12:38 Narrative: Pain OK. Tolerating diet. Would like circumcision for son. OB - PN: Obj Data Labs 03/15/24 05:14 Labs: Laboratory Results - last 24 hr 03/15/24 05:14 WBC 5.8 RBC 3.48 L Hgb 10.1 L Hct 30.2 L MCV 86.8 MCH 29.0 MCHC 33.4 RDW 15.2 H Plt Count 112 L MPV 10.8 H Immature Gran % (Auto) 0.7 H Neut % (Auto) 65.5 Lymph % (Auto) 26.5 [place] % (Auto) 5.9 Eos % (Auto) 0.9 Baso % (Auto) 0.5 Lymph # (Auto) 1.54 [place] # (Auto) 0.3 Eos # (Auto) 0.1 Baso # (Auto) 0.0 Abs Immat Gran (auto) 0.04 H Absolute Neuts (auto) 3.8 Absolute Nucleated RBC 0.000 Nucleated RBC % 0.0 Blood Type A Negative Antibody Screen TNP Screen Negative Baby's Blood Type A pos Baby's LATOYA Negative Doses of RhIg Required 1 OB - PN A/P Plan day: 1 Comments: A: POD#1, doing well. P: Routine care. Reviewed circ. Exam Narrative: AVSS I/O OK ABD soft, nontender, fundus firm. Incision c/d/i. EXT nontender
--- NOTE | 2024-03-15 13:20 | PC.NURSE ---
[phone] Consulted with patient to assess needs related to . Discussed with mother her successes, concerns and any questions she has. We reviewed working with the , supporting breast, protecting her nipples with an optimal deep latch, good positioning, and good hand washing. Mother demonstrates the understanding the benefits of skin to skin, responding to feeding cues, frequencies of feeding 8-12 times in 24 hours (approximately 2-3 hours), duration of feedings, milk production, intake/output feeding sheet and signs of adequate intake encouraging swallowing at the breast. Breast assessment there's visualized a space between breast and nipples point down with very little roundness to the breast. Mother does not have a successful or good milk supply history with her first child. Reviewed positioning and alignment, supporting breast, off-centered (asymmetrical latch) and leading with the chin with big, open, wide gape. Infant latched optimally to the left breast in cross cradle position. The infant was able to maintain latch without discomfort to mother, however; doesn't maintain past a few sucks before detaching. Nipple care reviewed with optimal latch, good positioning and using clean hands when touching her breast. We discussed paced bottle feeding and protecting the milk supply. Paced bottle feeding was demonstrated to parents. Mother instructed to call for a breast pump fitting consult. Resources used to facilitate learning were used from the visual handouts/ tool/mom and baby guide. Mother voiced understanding of the information and will call for assistance if the does not latch, if there is discomfort with and a pump assessment. Primary RN present. [phone] Breast pump provided last night due to ineffective . Instructions given on cleaning, care, usage, that there should be no pain, pumping schedule for milk production, collection, and storage of human milk. Patient was assessed for correct placement, flange size (21mm), to pump for comfort and nipple stretching/stimulation for adequate milk production every 3 hours (8 times in 24 hours) 1-2 times at night. Parents are encouraged to record the pumping schedule on the feeding sheet.?Mother voiced understanding of the education shared along with mom/baby guide and the pump measurement, flange fit handout for additional resource information.
[2024-03-15] MEDS: LIDOCAINE 5% PATCH 1 PATCH TRANSDERM (14:05)
[2024-03-15] MEDS: HYDROcodone/acetaminophen (*CRX) 10-325 MG TABLET 1 TAB PO ×2 (16:43→19:59)
[2024-03-15 18:29] LABS: Rapid Plasma Reagin Non-Reactive (NonReactive)
[2024-03-15 19:18] VITALS: BP 121/77; PULSE 102; RESP 18; TEMP 36.9; O2SAT 98
[2024-03-15] MEDS: RHO(D) IMMUNE GLOBULIN 300 MCG/2 ML SYRINGE IM (19:22)
[2024-03-15] MEDS: LORATADINE 10 MG TABLET (20:01)
[2024-03-15] MEDS: SERTRALINE HCL 50 MG TABLET 100 MG PO (21:17)
[2024-03-15] MEDS: buPROPion HCL XL (24 HR) 150 MG TABCR PO (21:18)
[2024-03-16] MEDS: ACETAMINOPHEN 325 MG TABLET 650 MG PO ×2 (04:14→10:07)
[2024-03-16] MEDS: IBUPROFEN 600 MG TABLET PO ×2 (04:15→10:07)
[2024-03-16] MEDS: HYDROcodone/acetaminophen (*CRX) 5-325 MG TABLET 1 TAB PO (05:13)
--- NOTE | 2024-03-16 06:52 | PM.OBPNVD ---
OB - PN: Subj Subjective Date/time seen: 03/16/24 06:52 Patient comments: no complaints and pain well controlled baby status: doing well and nursing well OB - PN: Obj Data Labs 03/15/24 05:14 Labs: Laboratory Results - last 24 hr 03/14/24 03/15/24 07:59 05:14 RPR Non-reactive Blood Type A Negative Antibody Screen TNP Screen Negative Baby's Blood Type A pos Baby's LATOYA Negative Doses of RhIg Required 1 OB - PN A/P Plan day: 2 Plan: routine care, discharge home and follow up 6 weeks (4) Time Spent With Patient Time: Total time spent is greater than 50% in coordination of care (as documented) at patient's floor/unit and/or counseling patient: Time with patient: less than 15 minutes Exam Const: General: cooperative, healthy appearing and comfortable Nutritional Appearance: average body habitus Orientation/consciousness: oriented to person, oriented to place and oriented to time Resp: Effort & Inspection: normal respiratory effort Cardio: Rate: regular rate Rhythm: regular rhythm Heart sounds: S1 normal heart sound present and S2 normal heart sound present GI: Inspection: normal to inspection and incision (cdi)
[2024-03-16 08:22] VITALS: BP 127/75; PULSE 98; RESP 18; TEMP 36.7; O2SAT 99
[2024-03-16] MEDS: MULTIVIT/MIN/PREN/FOL AC/IRON TABLET 1 TAB PO (10:07)
[2024-03-16] MEDS: DOCUSATE SODIUM 100 MG CAPSULE PO (10:07)
[2024-03-16] MEDS: SIMETHICONE 80 MG TAB.CHEW PO (10:07)
--- NOTE | 2024-03-16 10:23 | PC.NURSE ---
[id number] Consulted with mother concerning needs and she shared her ability feed her baby a bottle. Mother has made the decision to pump her breast at this stage to protect her milk supply and is syringe feeding her infant upon entering the room. Mother is feeding appropriately for growth of infant along with understanding to offer the breast to practice latching, pumping if infant doesn't latch and father of baby is supportive in feeding their infant. Infant has had appropriate feedings in the last 24 hours meets the outcomes for weight, output, blood sugar and jaundice at this time. Reinforced understanding of milk production, transition of milk, signs of adequate intake, transition of stool, prevention/relief of engorgement, plugged ducts, mastitis, responsive watching for feeding cues, the different methods of stimulating infant to breastfeed 1-3 hours after the start of the last feeding, community resources, and when to call a provider using the resource of the feeding sheet along with the mom and baby guide. Parents voiced understanding of the information shared, when to call for assistance, denies any additional assistance or education at this time.
[2024-03-17 08:55] VITALS: BP 138/79; PULSE 103; RESP 20; TEMP 36.6; O2SAT 99
== END 2024-03-16 12:35 | disposition home or self-care (01) | DRG 785 ==
LOC: ANHLDR 09:36 → ANHOB2 17:07 → ANHLDR 03-19 08:31 → ANHOB2 03-19 08:31
PROVIDERS: Admitting Provider Obstetrics & Gynecology; PCP Family Medicine Sports Medicine; Visit Provider Obstetrics & Gynecology
PROC: 10D00Z1 Extraction of Products of Conception, Low, Open Approach (ICD-10-PCS; CPT 59514; principal; 2024-03-14 08:15)
DX: O34.211 Maternal care for low transverse scar from previous cesarean delivery (principal); Z37.0 Single live birth; Z3A.38 38 weeks gestation of pregnancy; O99.824 Streptococcus B carrier state complicating childbirth; O69.81X0 Labor and delivery complicated by cord around neck, without compression, not applicable or unspecified; Z30.2 Encounter for sterilization
CPT/HCPCS: 36415; 85025; 85461; 86592; 86850; 86900; 86901; 88302; 90384; A9270; J0690; J1885; J2274; J2371; J2405; J2590; J2790; J7120

== ENCOUNTER 2024-09-16 12:46 | Emergency (ER) | payer OTHER, SELFPAY ==
[2024-09-16 13:06] VITALS: BP 124/68; PULSE 93; RESP 18; TEMP 36.3; O2SAT 100
--- NOTE | 2024-09-16 13:20 | ED.URI ---
HPI - URI/Sore Throat General Chief Complaint: Upper Respiratory Infection Stated Complaint: Fever / bodyache / sore throat Time Seen by Provider: 09/16/24 13:20 Source: patient Mode of arrival: ambulatory Limitations: no limitations History of Present Illness HPI Narrative: 28-year-old female presents with complaint of sore throat, fever, fatigue for 3 days. Taking Tylenol and ibuprofen to treat pain and fever. Denies nausea vomiting. All systems reviewed and negative except as noted above. Related Data Home Medications Medication Instructions Recorded Confirmed sertraline 100 mg tablet 100 mg PO HS 03/11/24 09/16/24 Allergies Allergy/AdvReac Type Severity Reaction Status Date / Time cisapride Allergy Severe Palpitation Verified 09/16/24 13:05 s erythromycin base Allergy Unknown Other Verified 09/16/24 13:05 Review of Systems Review of Systems: CONSTITUTIONAL: reports fatigue, fever, chills, or sweats. EYES: Denies visual changes, redness, or discharge. ENT: Denies rhinorrhea, congestion . Reports sore throat. Denies otalgia. CARDIOVASCULAR: Denies chest pain, palpitations, or edema. RESPIRATORY: Denies cough or dyspnea. GASTROINTESTINAL: Denies abdominal pain, nausea, vomiting, or diarrhea. GENITOURINARY: Denies dysuria or hematuria. SKIN: Denies rash or itching. MUSCULOSKELETAL: Denies back pain, joint pain, or myalgia. NEUROLOGIC: Denies headache, numbness, or weakness. PSYCHIATRIC: Denies anxiety or depression. All other systems reviewed are negative, except as documented in HPI. [facility] [place] Past Medical History Medical History (Updated 09/16/24 @ 13:40 by Lisa Treviño NP) History of anxiety IUP (intrauterine ), incidental Obesity (BMI 30-39.9) Surgical History Surgical History (Updated 03/14/24 @ 08:28 by Anatoliy Doss MD) History of delivery Family History Family History Grandparent Lung cancer Grandparent Breast cancer in female Social History Social History Smoking status: Never smoker Second hand tobacco smoke exposure: No Substance use: never Do You Feel Safe in your Home?: Yes Lack of Transportation: No Lack of Food: Never True Current Housing: I Have Housing Concerned About Future Housing: No Difficulty Paying Gas/Electric Bills: No Difficulty Paying for Meds: No Currently Unemployed: No Education: Master's Degree or Higher Difficulty w/ Childcare or Family Care: No Spiritual care concerns: No Comments At time of signature, agree with nursing past medical, surgical, social and family history. There is no relevant family history pertinent to the presenting complaint. Exam Narrative: GENERAL: This is a well-nourished, well-developed patient, in no apparent distress. HEAD: normocephalic, atraumatic. EYES: PERRL. Sclera clear/white. Vision is grossly intact. EARS: External ears normal, auditory canals clear and without drainage, TMs normal without perforation. Hearing grossly intact. NOSE: External nose normal with no obvious nasal discharge, nares without redness, no rhinorrhea. THROAT: Mucous membranes moist, mild erythema without swelling or exudates NECK: Neck supple, non-tender without lymphadenopathy, masses or thyromegaly. CARDIOVASCULAR: Regular rate and rhythm without murmurs, gallops, or rubs. RESPIRATORY: Clear to auscultation. Breath sounds equal bilaterally. No wheezes, rales, or rhonchi. SKIN: warm, Dry, intact with no suspicious lesions or rash, good texture and turgor. NEURO: awake, alert, and oriented to person, place and time. There were no obvious focal neurologic abnormalities. EXTREMITIES: No joint tenderness, effusion, or edema noted. Course Course Level of Care: Express Care Visit Vital Signs Vital signs: Vital Signs Temperature 36.3 C L 09/16/24 13:06 Pulse Rate 93 09/16/24 13:06 Respiratory Rate 18 09/16/24 13:06 Blood Pressure 124/68 09/16/24 13:06 Pulse Oximetry 100 09/16/24 13:06 Oxygen Delivery Room Air 09/16/24 13:06 Temperature 36.3 C L 09/16/24 13:06 Pulse Rate 93 09/16/24 13:06 Respiratory Rate 18 09/16/24 13:06 Blood Pressure 124/68 09/16/24 13:06 Pulse Oximetry 100 09/16/24 13:06 Oxygen Delivery Room Air 09/16/24 13:06 reviewed MDM - URI/Sore Throat MDM Narrative Medical decision making narrative: Patient is aware of diagnosis, understands and agrees to treatment plan. Anticipatory guidance given. Patient agrees to follow-up as directed and is aware of reasons to seek care at the emergency department. Portions of this record may have been created with voice recognition software Differential Diagnosis Differential diagnosis: Likely upper respiratory infection, sinusitis, viral infection, influenza and pharyngitis Discharge Plan Discharge Clinical Impression: Strep throat Patient Disposition: Home, Self-Care Condition: Stable Instructions: Antibiotic Form, Strep Throat (DC) Additional Instructions: your strep test was positive today. Take antibiotic as prescribed until gone. Change toothbrush after taking antibiotic for 24 hours. Take ibuprofen or Tylenol every 6-8 hours as needed for pain and fever. Drink at least 64 oz of water a day. Follow-up with your primary care physician if symptoms are not improving. Prescriptions: New amoxicillin 500 mg capsule 500 mg PO Q12H 10 Days Qty: 20 0RF No Action sertraline 100 mg Tablet 100 mg PO HS Follow-up/Referrals: Malinda,Deejay Rasmussen MD [Primary Care Provider] - Stand Alone Forms: Work/School Release IP Time of Disposition: 13:39
[2024-09-16 13:42] LABS: EDCOVIDSCREEN Negative (Negative); EDINFLUASCREEN Negative (Negative); EDINFLUBSCREEN Negative (Negative); EDSTREPNEGPOS1 Positive (Negative)
== END 2024-09-16 13:45 | disposition home or self-care (01) ==
PROVIDERS: Emergency Provider Nurse Practitioner Family; PCP Family Medicine Sports Medicine
DX: J02.0 Streptococcal pharyngitis (principal); Z20.822 Contact with and (suspected) exposure to COVID-19; F41.9 Anxiety disorder, unspecified; E66.9 Obesity, unspecified; Z68.28 Body mass index [BMI] 28.0-28.9, adult
CPT/HCPCS: 87426; 87804; 87880; 99213; G0463